=== PATIENT | male | born 1995 | race Caucasian/White ===

== ENCOUNTER → 2016-06-02 | Outpatient (CLI) | payer OTHER ==
[~2016-06-02] MED LIST: LIDOCAINE 1% MDV 20ML VIAL As Ordered ONE
--- NOTE | 2016-06-02 13:24 | REP ---
Clinical: Abscess. Technique: Real time patel scale and color evaluation using curved array transducer. Findings: Directed ultrasound examination demonstrates a complex collection in the right flank measuring roughly 7.8 x 1.6 cm maximal AP and transverse diameter as well as a midline pelvic collection measuring 5.9 x 4.1 cm maximal diameter. Impression: Small complex collections as measured above. Signed by Senthil Livingston MD 06/02/2016 01:16 P
--- NOTE | 2016-06-02 17:11 | REP ---
ULTRASOUND GUIDED ABDOMINAL ABSCESS DRAIN: The procedure was performed under the direct supervision of Dr. Garvey. The patient has a history of a focal fluid collection measuring 6.6 cm in the mid pelvis just above the urinary bladder as well as an elongated fluid collection in the upper pelvis and lower abdomen anterolaterally on the right measuring 7.8 x 8.7 x 2 cm seen on a previous CT scan from [facility] performed on 06/01/2016. The pelvic abscess was addressed first. The abscess was localized using ultrasound guidance. The skin was prepped and draped in a sterile fashion. 1% Xylocaine was used as a local anesthetic. Using ultrasound guidance, a #10-[place] skater APDL catheter was inserted using trocar technique. 20 mL of reddish colored fluid was withdrawn and sent to the lab. The catheter was affixed to the skin and a sterile dressing was applied. The catheter was connected to a gravity drainage bag. The right abdominal abscess was then addressed. The abscess was localized using ultrasound guidance. The skin was prepped and draped in a sterile fashion. 1% lidocaine was used as a local anesthetic. Using ultrasound guidance a #10-[place] skater APDL catheter was inserted using trocar technique. 5 mL of reddish colored fluid was withdrawn and sent to the lab. The catheter was affixed to the skin and a sterile dressing was applied. The catheter was connected to a gravity drainage bag. The patient tolerated the procedure well and there were no immediate complications. After the appropriate amount of monitored convalescence the patient was discharged from the department. Reviewed by SILVIA Thompson 06/03/2016 04:46 PEdited and Signed by Brandon Garvey MD 06/03/2016 05:18 P
== END ==
LOC: M RADPRO 11:18
PROVIDERS: ATTEND Surgery
DX: T81.4XXA Infection following a procedure, initial encounter (principal)

== ENCOUNTER 2016-09-07 11:10 | Emergency (ER) | payer OTHER ==
[~2016-09-07] VITALS: Ht 180.3 cm; Wt 104.3 kg
[2016-09-07 11:11] VITALS: BP 162/96
[2016-09-07] MEDS ORDERED: TYLE325T5 PO (11:22)
[2016-09-07] MEDS ORDERED: KETOROLAC 30 MG/ML VIAL (J1885) IV ONE (12:00)
--- NOTE | 2016-09-07 12:07 | ED PDOC ---
Post-Departure Follow-Up PT PRESENTS TODAY STATING RLQ PAIN FOR THE PAST 5 DAYS. PT STATES HE HAD AN APPENDECTOMY PERFORMED AT [facility] IN MAY 2016. STATES SINCE THAT TIME, HE HAS HAD 2 ABSCESSES IN THAT AREA THAT HAVE REQUIRED SURGICAL DRAINAGE. PT STATES THIS PAIN TODAY FEELS THE SAME. STATES LOCALIZED PAIN IN THE RLQ FOR THE PAST 5 DAYS, WORSE WITH WALKING AND TYING HIS SHOES TODAY. DENIES ANY FEVER , NAUSEA, VOMITING, APPETITE CHANGE. KEIKO PALMER PA-C September 07, 2016 12:07
[2016-09-07 12:30] LABS: BASO % 0.8 % (0.0-1.0); EOS # 0.5 K/mm3 (0.0-0.50); EOS % 6.9 % (0.0-3.0); LARGE UNSTAINED CELL # 0.1 K/mm3 (0.0-0.4); LYMPH # 1.9 K/mm3 (1.5-6.5); LYMPH % 27.5 % (24.0-44.0); MEAN CORPUSCULAR HEMOGLOBIN 31.9 pg (27.0-33.0); MEAN CORPUSCULAR HGB CONC 34.3 g/dl (32.0-36.5); MONO # 0.4 K/mm3 (0.0-0.8); MONO % 5.4 % (0.0-5.0); NEUTROPHILS % 57.4 % (36.0-66.0); PLATELET COUNT, AUTOMATED 162 k/mm3 (150-450); RED CELL DISTRIBUTION WIDTH 13.2 % (11.5-14.5); WHITE BLOOD COUNT 6.9 K/mm3 (4.0-10.0)
[2016-09-07 12:58] LABS: ERYTHROCYTE SEDIMENTATION RATE 2 mm/hr (0-15)
[2016-09-07 13:04] LABS: ALBUMIN 4.2 GM/DL (3.2-5.2); ALBUMIN/GLOBULIN RATIO 1.24 (1.00-1.93); ALKALINE PHOSPHATASE 49 U/L (45-117); ALT/SGPT 55 U/L (12-78); ANION GAP 5 MEQ/L (8-16); AST/SGOT 48 U/L (15-37); BILIRUBIN,DIRECT < 0.1 MG/DL (0.0-0.2); BILIRUBIN,TOTAL 0.3 MG/DL (0.2-1.0); BLOOD UREA NITROGEN 14 MG/DL (7-18); CALCIUM LEVEL 9.6 MG/DL (8.5-10.1); CARBON DIOXIDE LEVEL 29 MEQ/L (21-32); CHLORIDE LEVEL 104 MEQ/L (98-107); CREATININE FOR GFR 0.92 MG/DL (0.70-1.30); GLOMERULAR FILTRATION RATE > 60.0 (>60); GLUCOSE, FASTING 87 MG/DL (70-105); POTASSIUM SERUM 4.4 MEQ/L (3.5-5.1); SODIUM LEVEL 138 MEQ/L (136-145); TOTAL PROTEIN 7.6 GM/DL (6.4-8.2)
[2016-09-07] MEDS ORDERED: ISOVUE-370 76% 100ML VIAL (Q9967) As Ordered ONE (13:06)
--- NOTE | 2016-09-07 14:18 | REP ---
CT ABDOMEN AND PELVIS WITH IV CONTRAST: TECHNIQUE: Axial contrast enhanced images from the lung bases to the pubic symphysis using 100 mL Isovue 370 intravenous contrast material with multiplanar reformations. The visualized lung bases are clear. The liver, spleen, adrenals and pancreas are unremarkable. A tiny 7 mm hypodense nodule in the upper pole of the right kidney probably represents a cyst. There are approximately five other nodular opacities in the left kidney, some of which appear hypodense representing cysts but a couple in the upper pole are somewhat more dense and further evaluation is recommended with renal ultrasound. The largest is in the upper pole of the left kidney measuring 1.4 cm in diameter. There is no hydronephrosis bilaterally. There is no abdominal aortic aneurysm. There is no adenopathy, free air or free fluid. No bowel wall thickening or inflammation is seen. The urinary bladder is unremarkable. IMPRESSION: No free air or free fluid. No abscess. No bowel wall thickening. Several nodules seen in the kidneys, one in the right kidney and approximately five in the left kidney. These may represent cysts. Recommend confirmation with renal ultrasound. Signed by Al Lucia MD 09/09/2016 06:57 P
--- NOTE | 2016-09-12 15:12 | ED PDOC ---
Post-Departure Follow-Up scotty garcia faxed formal report of ct abd/p for fu Shanell Abebe MD Sep 12, 2016 15:12
== END 2016-09-07 14:11 | disposition home or self-care (01) ==
LOC: M ED 12:12
DX: R10.31 Right lower quadrant pain (principal); N28.89 Other specified disorders of kidney and ureter
CPT/HCPCS: 74177; 80048; 80076; 85025; 85652; 86140; 96374; 99283; J1885; Q9967